=== PATIENT | female | born 1990 | race Caucasian/White ===

== ENCOUNTER 2022-05-14 15:18 | Inpatient (IN) | payer BC ==
[2022-05-14] MEDS ORDERED: TERBUTALINE 1 MG/ML VIAL SQ PRN (16:28)
[2022-05-14] MEDS ORDERED: OXYTOCIN 10 UNIT/ML 1 ML VIAL IM PRN (16:28)
[2022-05-14] MEDS ORDERED: METHYLERGONOVINE 0.2 MG/ML 1 ML AMP IM PRN (16:28)
[2022-05-14] MEDS ORDERED: LIDOCAINE 0.5% (PF) 5 MG/ML (50 ML SDV) SQ PRN (16:28)
[2022-05-14] MEDS ORDERED: CARBOPROST TROMETHAMINE 250 MCG/ML 1 ML AMP IM PRN (16:28)
[2022-05-14] MEDS ORDERED: OXYTOCIN 30 UNITS/500 ML NS 30 UNIT in SALINE 1 500ML.BAG IV SCH (16:30)
--- NOTE | 2022-05-14 16:53 | US ---
EXAMINATION TYPE: US OB limited DATE OF EXAM: 05/14/2022 COMPARISON: NONE CLINICAL HISTORY: decreased movement. heart tones EXAM PERFORMED: Transabdominal (TA) GESTATIONAL AGE / DATING Physician Established: (40 weeks/0 days) EDC: 05/14/2022 No growth performed on today?s study per ordering physician SURVEY PRESENTATION: Vertex HEART RATE: No heart tones IMPRESSION: Correlate for demise.
[2022-05-14] MEDS: LACTATED RINGERS 1,000 ML IV SCH ×2 (17:00→22:29)
[2022-05-14 17:28] LABS: Basophils % (A) 0 %; Eosinophils % (A) 0 %; HCT 38.2 % (34.0-46.0); HGB 13.1 gm/dL (11.4-16.0); Lymphocytes # (A) 1.3 k/uL (1.0-4.8); Lymphocytes % (A) 9 %; MCH 32.3 pg (25.0-35.0); MCHC 34.3 g/dL (31.0-37.0); MCV 94.2 fL (80.0-100.0); Mean Platelet Volume 7.9; Monocytes # (A) 0.7 k/uL (0-1.0); Monocytes % (A) 5 %; Neutrophils % (A) 84 %; Platelet Count 267 k/uL (150-450); RBC 4.06 m/uL (3.80-5.40); RDW 12.9 % (11.5-15.5); WBC 14.2 k/uL (3.8-10.6)
[2022-05-14 17:33] LABS: INR 0.8 (<1.2); Partial Thromboplastin Time 24.4 sec (22.0-30.0); Prothrombin Time 9.3 sec (9.0-12.0)
[2022-05-14 18:47] VITALS: RESP 16
--- NOTE | 2022-05-14 19:52 | P.HPOB ---
History of Present Illness H&P Date: 05/14/22 Chief Complaint: demise at 40 0/7 weeks This is a 32-year-old 1 para 0 that presents to labor and delivery at 40-0/7 weeks' complaints of no movement since last evening. Patient notes occasional cramping, denies vaginal bleeding or loss of fluid. Patient was seen yesterday in the office with a normal ultrasound estimated weight around 7-6 pounds, normal amniotic fluid index at 24, cervical exam was found to be 3/50/-2 station, NST was performed and found to be reactive. NST done as her EDC was over the weekend. patient is been receiving routine care with myself which has been essentially uncomplicated. Patient was placed on the monitor in triage no heart tones were found, ultrasound was ordered once again no heart tones were noted. Review of Systems Constitutional: Denies chills, Denies fatigue, Denies fever Ears, nose, mouth and throat: Denies headache Cardiovascular: Denies leg edema Respiratory: Denies dyspnea Gastrointestinal: Denies nausea, Denies vomiting Genitourinary: Reports Past Medical History History of Any Multi-Drug Resistant Organisms: None Reported Smoking Status: Never smoker Medications and Allergies Allergies Allergy/AdvReac Type Severity Reaction Status Date / Time No Known Allergies Allergy Verified 05/14/22 15:28 Exam Osteopathic Statement: *. No significant issues noted on an osteopathic structural exam other than those noted in the History and Physical/Consult. Intake and Output 05/14/22 05/14/22 05/14/22 06:59 14:59 22:59 Other: Weight 75.296 kg Targeted physical exam is performed and state in general this a well-nourished well-developed female in no acute distress, breathing is nonlabored, heart has a regular rate and rhythm, abdomen is gravid, cervical exam is Results Result Diagrams: 05/14/22 17:07 Assessment and Plan (1) demise Current Visit: Yes Status: Acute Code(s): AAG9802 - SNOMED Code(s): 532440918 Plan: 32-year-old 1 para 0 at 40-0/7 weeks with term demise. Patient is counseled on need for vaginal delivery, will induce labor with pitocin. Patient is offered Stadol and epidural. She will consider. CBC type and screen, PT/PTT INR are drawn. Discussion with patient regarding plan of care, patient visibly upset understandably and denies questions.
[2022-05-15] MEDS ORDERED: HYDROCORTISONE 2.5% RECTAL CREAM 30 GM TUBE RECTAL PRN (01:22)
[2022-05-15] MEDS ORDERED: SIMETHICONE 80 MG CHEWABLE PO PRN (01:22)
[2022-05-15] MEDS ORDERED: ACETAMINOPHEN TAB 325 MG TAB PO PRN (01:22)
[2022-05-15] MEDS ORDERED: diphenhydrAMINE 25 MG CAP PO PRN (01:22)
[2022-05-15] MEDS ORDERED: ZOLPIDEM 5 MG TAB PO PRN (01:22)
[2022-05-15] MEDS ORDERED: diphenhydrAMINE 50 MG CAP PO PRN (01:22)
[2022-05-15] MEDS ORDERED: LANOLIN CREAM 5 GM TUBE TOPICAL PRN (01:22)
[2022-05-15] MEDS ORDERED: BENZOCAINE/MENTHOL SPRAY 1 GM/SPRAY AEROSOL TOPICAL PRN (01:22)
[2022-05-15] MEDS ORDERED: diphenhydrAMINE 50 MG/ML 1 ML VIAL IVP PRN ×2 (01:22)
--- NOTE | 2022-05-15 01:22 | P.PROBDLV ---
Vaginal Delivery Note - . Vaginal Delivery Note: This is a 32-year-old 1 para 0 at 40-0/7 weeks that presented to labor and delivery early this evening with complaints of decreased movement. Patient stated last movement was noted last evening. Patient was last in the office yesterday with a normal NST, ultrasound with 7 lbs. 6 oz. infant normal NATHALY. Patient was admitted to labor and delivery after no heart tones were documented on Doppler or ultrasound. Pitocin induction of labor was begun. Amniotomy was performed and clear blood-tinged fluid was appreciated. Patient progressed in labor eventually becoming uncomfortable and requesting epidural placement. Epidural was placed without difficulty by the anesthesia department. Patient progressed to complete began pushing and had a normal spontaneous vaginal delivery of a nonviable male. The umbilical cord was clamped and cut and the was handed on the maternal abdomen. The placenta was delivered spontaneously intact with three-vessel cord was noted. A true knot was noted in the umbilical cord with blood pooling behind the knot toward the placenta. On inspection the patient's vaginal exam a midline second-degree laceration was appreciated with a left sulcal tear. This was repaired in usual fashion with 3- 0 Rapide. Bleeding was noted on the midportion therefore 2 [id number] sutures were used to obtain hemostasis. Small amount of bleeding was appreciated therefore Surgicel powder was placed along the base of the laceration. Hemostasis was then appreciated. Uterus is noted to be firm and below the umbilicus. All counts were noted be correct 2 at the end of delivery. Patient tolerated delivery well. Estimated blood loss 100 mL.
[2022-05-15] MEDS ORDERED: OXYTOCIN 30 UNITS/500 ML NS 30 UNIT in SALINE 1 500ML.BAG IV SCH (01:30)
[2022-05-15] MEDS ORDERED: IBUPROFEN 600 MG TAB PO SCH (01:30)
[2022-05-15 02:47] VITALS: PULSE 93
[2022-05-15 04:17] VITALS: BP 119/71; TEMP 97.4
[2022-05-15] MEDS ORDERED: SENNOSIDES-DOCUSATE SODIUM 1 EACH TAB PO SCH (08:00)
--- NOTE | 2022-05-15 09:20 | P.DS ---
Providers Date of admission: 05/14/22 16:24 Expected date of discharge: 05/15/22 Attending physician: Winifred Reeves Primary care physician: Stated None - Discharge Diagnosis(es) (1) demise Status: Acute Hospital Course: This is a 32-year-old 1 now para 1000 that presented to labor and delivery last evening at 40-0/7 weeks with complaints of decreased movement. Patient stated her last movement was the night prior. Patient was placed on the monitor and no heart tones were heard, ultrasound was obtained with confirmation of intrauterine demise at 40 weeks. Patient was counseled on admission to labor and delivery for induction of labor. Patient was admitted and Pitocin induction of labor was begun. Amniotomy was performed and clear pink tinged fluid was appreciated. Patient progressed through labor eventually becoming uncomfortable requesting epidural placement. Epidural was placed without difficulty by the anesthesia department. Patient progressed to complete began pushing and had a normal spontaneous vaginal delivery of a nonviable male at 00:37, weight of 6 lbs. 7 oz. patient did sustain a midline second-degree laceration with a left sulcal tear. This was repaired in the usual fashion with 3-0 Rapide. Bleeding was noted on the midportion of the vaginal laceration therefore 2 [id number] sutures were used to obtain hemostasis. A small amount of bleeding/oozing was still appreciated therefore Surgicel powder was placed along the laceration hemostasis was then noted. Patient recovery period was without complication, bleeding was normal. Patient did elect to go home a few hours after delivery. Patient Condition at Discharge: Good Plan - Discharge Summary New Discharge Prescriptions: No Action Vit No.179/Iron/Folic [ Tablet] 1 each PO DAILY Venlafaxine HCl [Effexor] 75 mg PO DAILY Discharge Medication List Vit No.179/Iron/Folic [ Tablet] 1 each PO DAILY 05/14/22 [History] Venlafaxine HCl [Effexor] 75 mg PO DAILY 05/14/22 [History] Patient Instructions/Handouts: Stillbirth (DC) Activity/Diet/Wound Care/Special Instructions: Follow up in 4-6 weeks, call for appointment. Discharge Disposition: HOME SELF-CARE
== END 2022-05-15 04:30 | disposition home or self-care (01) | DRG 807 ==
LOC: FBPOP 15:18 → 4FBP 16:24
PROVIDERS: ADMIT Obstetrics & Gynecology Obstetrics; ATTEND Obstetrics & Gynecology Obstetrics
PROC: 10E0XZZ Delivery of Products of Conception, External Approach (ICD-10-PCS; principal; 2022-05-15)
PROC: 0KQM0ZZ Repair Perineum Muscle, Open Approach (ICD-10-PCS; 2022-05-15)
PROC: 4A0HXCZ Measurement of Products of Conception, Cardiac Rate, External Approach (ICD-10-PCS; 2022-05-15)
PROC: 10907ZC Drainage of Amniotic Fluid, Therapeutic from Products of Conception, Via Natural or Artificial Opening (ICD-10-PCS; 2022-05-15)
PROC: 3E033VJ Introduction of Other Hormone into Peripheral Vein, Percutaneous Approach (ICD-10-PCS; 2022-05-15)
DX: O36.4XX0 Maternal care for intrauterine death, not applicable or unspecified (principal); Z37.0 Single live birth; O69.2XX0 Labor and delivery complicated by other cord entanglement, with compression, not applicable or unspecified; O70.1 Second degree perineal laceration during delivery; Z37.1 Single stillbirth; Z3A.40 40 weeks gestation of pregnancy
CPT/HCPCS: 76815; 85025; 85610; 85730; 86850; 86900; 86901; 99213

== ENCOUNTER 2023-05-27 06:00 | Inpatient (IN) | payer BC ==
[2023-05-27] MEDS ORDERED: CARBOPROST TROMETHAMINE 250 MCG/ML 1 ML AMP IM PRN (06:51)
[2023-05-27] MEDS ORDERED: OXYTOCIN 10 UNIT/ML 1 ML VIAL IM PRN (06:51)
[2023-05-27] MEDS ORDERED: TERBUTALINE 1 MG/ML VIAL SQ PRN (06:51)
[2023-05-27] MEDS ORDERED: miSOPROStoL 200 MCG TAB PO PRN (06:51)
[2023-05-27] MEDS ORDERED: METHYLERGONOVINE 0.2 MG/ML 1 ML AMP IM PRN (06:51)
[2023-05-27] MEDS ORDERED: TRANEXAMIC 1,000 MG/100ML-NACL 1,000 MG in EMPTY BAG 1 BAG IV PRN (06:51)
[2023-05-27] MEDS ORDERED: LIDOCAINE 0.5% (PF) 5 MG/ML (50 ML SDV) SQ PRN (06:51)
[2023-05-27] MEDS: OXYTOCIN 30 UNITS/500 ML NS 30 UNIT in SALINE 1 500ML.BAG IV SCH ×2 (07:00→18:19)
[2023-05-27] MEDS: LACTATED RINGERS 1,000 ML IV SCH ×3 (07:01→14:13)
[2023-05-27 07:22] LABS: Basophils % (A) 0 %; Eosinophils % (A) 0 %; HCT 34.7 % (34.0-46.0); Lymphocytes # (A) 1.9 k/uL (1.0-4.8); Lymphocytes % (A) 24 %; MCH 33.2 pg (25.0-35.0); MCHC 34.6 g/dL (31.0-37.0); MCV 95.9 fL (80.0-100.0); Mean Platelet Volume 7.6; Monocytes # (A) 0.4 k/uL (0-1.0); Monocytes % (A) 5 %; Neutrophils # (A) 5.5 k/uL (1.3-7.7); Neutrophils % (A) 70 %; Platelet Count 279 k/uL (150-450); RBC 3.62 m/uL (3.80-5.40); RDW 12.5 % (11.5-15.5); WBC 7.8 k/uL (3.8-10.6)
[2023-05-27] MEDS ORDERED: ROPIVACAINE 5 MG/ML 30 ML VIAL ONE (13:34)
[2023-05-27] MEDS ORDERED: fentaNYL (PF) 50 MCG/ML 5 ML AMP ONE (13:34)
[2023-05-27] MEDS ORDERED: SODIUM CHLORIDE 0.9% 250 ML BAG ONE (13:34)
[2023-05-27] MEDS ORDERED: HYDROCORTISONE 2.5% RECTAL CREAM 30 GM TUBE RECTAL PRN (17:38)
[2023-05-27] MEDS ORDERED: diphenhydrAMINE 25 MG CAP PO PRN (17:38)
[2023-05-27] MEDS ORDERED: BENZOCAINE/MENTHOL SPRAY 1 GM/SPRAY AEROSOL TOPICAL PRN (17:38)
[2023-05-27] MEDS ORDERED: SIMETHICONE 80 MG CHEWABLE PO PRN (17:38)
[2023-05-27] MEDS ORDERED: ACETAMINOPHEN TAB 325 MG TAB PO PRN (17:38)
[2023-05-27] MEDS ORDERED: diphenhydrAMINE 50 MG CAP PO PRN (17:38)
[2023-05-27] MEDS ORDERED: LANOLIN CREAM 5 GM TUBE TOPICAL PRN (17:38)
[2023-05-27] MEDS ORDERED: ZOLPIDEM 5 MG TAB PO PRN (17:38)
[2023-05-27] MEDS ORDERED: diphenhydrAMINE 50 MG/ML 1 ML VIAL IVP PRN ×2 (17:38)
--- NOTE | 2023-05-27 17:38 | P.PROBDLV ---
Vaginal Delivery Note - . Vaginal Delivery Note: Findings: Viable female delivered at 1715 This is a 33-year-old at 38-0/7 weeks that presents to labor and delivery for induction of labor. Patient has a prior history of a full-term demise. Patient has been receiving routine care that has been essentially uncomplicated. Patient was admitted to labor and delivery and Pitocin induction of labor was begun per hospital protocol. Patient underwent amniotomy and copious clear fluid was obtained. Patient progressed through labor eventually becoming uncomfortable and requesting epidural placement. Epidural was placed without difficulty by the anesthesia department. Patient made slow progress but was noted to be completely dilated and +2 station. Patient began pushing and with excellent maternal effort had a normal spontaneous vaginal delivery of a viable female at 1715 weight is pending as the infant was on the maternal abdomen. After two-minute delay the umbilical cord was doubly clamped and cut. Spontaneous cry was noted at . The placenta was delivered spontaneously intact with a three-vessel cord being noted. A first-degree vaginal laceration was appreciated. This was repaired in the usual fashion with 3-0 Rapide. All counts are correct 2 at the delivery. Patient and infant tolerated delivery well and are resting comfortably. Estimated blood loss 100 mL
--- NOTE | 2023-05-27 17:41 | P.HPOB ---
History of Present Illness H&P Date: 05/27/23 Chief Complaint: IUP at 38-1/7 weeks 33-year-old at 38 and one sevenths weeks that presents to labor and delivery for induction of labor. Patient has a significant history of a demise at 40 weeks. True knot in the umbilical cord was appreciated on delivery. Patient has been receiving routine care which has been essentially uncomplicated. EDC based on LMP and c/w first trimester US. Patient has noted irregular contractions for the last few days. Patient denies loss of fluid or vaginal bleeding. Patient has a known blood type of A+, rubella status immune, hepatitis B surface antigen negative, HIV negative RPR is nonreactive, group beta strep cultures negative. Obstetric history #1 04/2020 term demise 40 weeks #2 current Review of Systems Constitutional: Denies chills, Denies fatigue, Denies fever Ears, nose, mouth and throat: Denies headache Cardiovascular: Denies leg edema Respiratory: Denies dyspnea Gastrointestinal: Denies nausea, Denies vomiting Genitourinary: Reports Past Medical History Past Medical History: No Reported History History of Any Multi-Drug Resistant Organisms: None Reported Past Surgical History: No Surgical Hx Reported Past Anesthesia/Blood Transfusion Reactions: No Reported Reaction Past Psychological History: Anxiety, Depression Smoking Status: Never smoker Past Alcohol Use History: None Reported Past Drug Use History: None Reported Medications and Allergies Home Medications Medication Instructions Recorded Confirmed Type Vit No.179/Iron/Folic 1 each PO DAILY 05/14/22 05/27/23 History [ Tablet] Venlafaxine HCl [Effexor] 75 mg PO DAILY 05/14/22 05/27/23 History Allergies Allergy/AdvReac Type Severity Reaction Status Date / Time No Known Allergies Allergy Verified 05/27/23 06:18 Exam Osteopathic Statement: *. No significant issues noted on an osteopathic structural exam other than those noted in the History and Physical/Consult. Intake and Output 05/26/23 05/26/23 05/27/23 14:59 22:59 06:59 Other: Weight 74.843 kg Targeted physical exam is performed and state in general this a well-nourished well-developed female in no acute distress, reading is noted to be nonlabored, heart has regular rate and rhythm, abdomen is gravid and appropriate for gestational age, on cervical exam she is 3-4/70/-3 station amniotomy is performed and clear fluid was obtained. heart tones are noted to be category 1 and she is michelle irregularly. Results Result Diagrams: 05/27/23 06:45 Assessment and Plan (1) Term Current Visit: Yes Status: Acute Code(s): Z34.90 - ENCNTR FOR SUPRVSN OF NORMAL , UNSP, UNSP TRIMESTER SNOMED Code(s): 39585677 Plan: 33-year-old at 38 and one sevenths weeks with history of term demise presents for induction of labor. Patient has been understandably significantly anxious regarding this and delivery date. Patient is admitted to labor and delivery and Pitocin induction of labor is gone per hospital protocol. Amniotomy is performed and clear fluid was obtained. Options for analgesia are discussed including Nubain, nitrous, epidural. Patient states she will consider her options. Anticipate spontaneous vaginal delivery later today.
[2023-05-27 18:14] VITALS: RESP 16
[2023-05-27] MEDS: IBUPROFEN 600 MG TAB PO SCH (18:35)
[2023-05-27] MEDS ORDERED: SENNOSIDES-DOCUSATE SODIUM 1 EACH TAB PO SCH (20:00)
[2023-05-28] MEDS: IBUPROFEN 600 MG TAB PO SCH ×2 (04:29→15:31)
[2023-05-28] MEDS ORDERED: PRENATAL VIT-IRON-FOLIC ACID 1 EACH TABLET PO SCH (09:00)
--- NOTE | 2023-05-28 09:27 | P.DS ---
Providers Date of admission: 05/27/23 06:05 Expected date of discharge: 05/28/23 Attending physician: Winifred Reeves Primary care physician: Stated None - Discharge Diagnosis(es) (1) Term Current Visit: Yes Status: Acute (2) Status post normal vaginal delivery Current Visit: Yes Status: Acute (3) Obstetric vaginal laceration with first degree perineal laceration Current Visit: Yes Status: Acute Hospital Course: 33-year-old G2 now P to 001 that presented to labor and delivery yesterday 05/26 for induction of labor. Patient has a history of a term demise. Patient's course has been uncomplicated. Patient was admitted to labor and delivery where Pitocin induction of labor was begun. Amniotomy was performed and clear fluid was obtained. Patient made slow progress through labor but did become uncomfortable and requested epidural. Epidural was placed without difficulty by the anesthesia department. Patient made slow progress to complete. Once patient was noted to be completely dilated she began pushing and had a normal spontaneous vaginal delivery of a viable female at 1715, weight of 5 lbs. 15 oz. Patient did sustain a first-degree vaginal laceration during delivery. This was repaired in the usual fashion with 3-0 repeat. Patient's course has been uneventful. On this day #1 she is a billing and voiding without difficulty. She is tolerating a regular diet without nausea or vomiting. She states her pain is well-controlled. She would like discharge home at 24 hours if possible. Patient Condition at Discharge: Good Plan - Discharge Summary New Discharge Prescriptions: No Action Vit No.179/Iron/Folic [ Tablet] 1 each PO DAILY Venlafaxine HCl [Effexor] 75 mg PO DAILY Discharge Medication List Vit No.179/Iron/Folic [ Tablet] 1 each PO DAILY 05/14/22 [History] Venlafaxine HCl [Effexor] 75 mg PO DAILY 05/14/22 [History] Follow up Appointment(s)/Referral(s): Winifred Reeves DO [Doctor of Osteopathic Medicine] - 6 Weeks Patient Instructions/Handouts: Vaginal Delivery (GEN), Vaginal Delivery (DC) Activity/Diet/Wound Care/Special Instructions: No tub baths or intercourse until 6 weeks . Bleeding precautions are reviewed. Patient is NEGATIVE routine visit for 6 weeks . Should she have any concerns prior to this appointment she is urged to call the office Discharge Disposition: HOME SELF-CARE
[2023-05-28] MEDS: LACTATED RINGERS 1,000 ML IV SCH ×2 (15:32→15:33)
[2023-05-28 17:39] VITALS: BP 100/61; PULSE 80; TEMP 98.6
== END 2023-05-28 17:40 | disposition home or self-care (01) | DRG 807 ==
LOC: 4FBP 06:05
PROVIDERS: ADMIT Obstetrics & Gynecology Obstetrics; ATTEND Obstetrics & Gynecology Obstetrics
PROC: 10E0XZZ Delivery of Products of Conception, External Approach (ICD-10-PCS; principal; 2023-05-27)
PROC: 0HQ9XZZ Repair Perineum Skin, External Approach (ICD-10-PCS; 2023-05-27)
PROC: 10907ZC Drainage of Amniotic Fluid, Therapeutic from Products of Conception, Via Natural or Artificial Opening (ICD-10-PCS; 2023-05-27)
PROC: 3E033VJ Introduction of Other Hormone into Peripheral Vein, Percutaneous Approach (ICD-10-PCS; 2023-05-27)
DX: O70.0 First degree perineal laceration during delivery (principal); Z37.0 Single live birth; O99.344 Other mental disorders complicating childbirth; F41.9 Anxiety disorder, unspecified; F32.A Depression, unspecified; Z3A.38 38 weeks gestation of pregnancy; Z79.899 Other long term (current) drug therapy
CPT/HCPCS: 85025; 86850; 86900; 86901

== ENCOUNTER → 2025-02-08 | Outpatient (CLI) | payer OTHER ==
[2025-02-08 20:09] LABS: Basophils # (A) 0.03 X 10*3/uL (0.00-0.10); Basophils % (A) 0.4 %; Eosinophils # (A) 0.09 X 10*3/uL (0.04-0.35); Eosinophils % (A) 1.1 %; HCT 40.8 % (37.2-46.3); HGB 13.5 g/dL (12.0-15.0); Lymphocytes % (A) 29.9 %; MCH 31.3 pg (27.0-32.0); MCHC 33.1 g/dL (32.0-37.0); MCV 94.4 FL (80.0-97.0); Mean Platelet Volume 9.9 FL (9.5-12.2); Monocytes # (A) 0.46 X 10*3/uL (0.20-1.00); Monocytes % (A) 5.7 %; NRBC Per 100 WBC 0 X 10*3/uL (0.00-0.01); Neutrophils # (A) 5.03 X 10*3/uL (1.80-7.70); Neutrophils % (A) 62.7 %; Platelet Count 307 X 10*3/uL (140-440); RBC 4.32 X 10*6/uL (4.10-5.20); RDW 12.1 % (11.5-14.5); WBC 8.03 X 10*3/uL (4.50-10.00)
[2025-02-08 21:05] LABS: INR <0.93 sec (0.93-1.11); Prothrombin Time 10.4 sec (9.9-11.9)
[2025-02-08 22:04] LABS: Estradiol 46.8 pg/mL
[2025-02-08 23:22] LABS: Luteinizing Hormone 6.3 mIU/mL
== END | disposition home or self-care (01) ==
LOC: LABWHC1 13:52
PROVIDERS: ATTEND Student in an Organized Health Care Education/Training Program
DX: N97.9 Female infertility, unspecified (principal); N92.0 Excessive and frequent menstruation with regular cycle
CPT/HCPCS: 36415; 81241; 82670; 83001; 83002; 84144; 85025; 85246; 85610

== ENCOUNTER → 2025-02-23 | Outpatient (CLI) | payer OTHER | END | disposition home or self-care (01) | LOC: LABWHC1 08:23 | PROVIDERS: ATTEND Student in an Organized Health Care Education/Training Program | DX: N97.9 Female infertility, unspecified (principal); N92.0 Excessive and frequent menstruation with regular cycle | CPT/HCPCS: 36415; 84144 ==